=== PATIENT | male | born 1975 | race Caucasian/White ===

== ENCOUNTER 2016-11-16 11:15 | Emergency (ER) | payer OTHER ==
[2016-11-16] MEDS ORDERED: LET GEL TOPICAL 1 EA SYR TP ONE ×2 (11:30→11:31)
[2016-11-16] MEDS ORDERED: TDAP ADULT 0.5 ML INJ (BOOSTRIX) IM ONE (12:51)
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
[2016-11-16 13:16] VITALS: BP 122/91; PULSE 81; RESP 15; TEMP 98.8; O2SAT 94
== END 2016-11-16 13:16 | disposition home or self-care (01) ==
PROC: 0HQEXZZ Repair Left Lower Arm Skin, External Approach (ICD-10-PCS; principal; 2016-11-16)
DX: S51.812A Laceration without foreign body of left forearm, initial encounter (principal); Z23 Encounter for immunization; V18.0XXA Pedal cycle driver injured in noncollision transport accident in nontraffic accident, initial encounter; Y93.55 Activity, bike riding